=== PATIENT | female | born 1995 | race African-American/Black ===

== ENCOUNTER 2018-03-01 13:09 | Emergency (ER) | payer OTHER ==
[~2018-03-01] VITALS: Ht 152.4 cm; Wt 52.4 kg
[2018-03-01 15:26] VITALS: BP 106/72
== END 2018-03-01 15:46 | disposition home or self-care (01) ==
LOC: ED 15:40
DX: J45.31 Mild persistent asthma with (acute) exacerbation (principal); R07.89 Other chest pain
CPT/HCPCS: 71046; 93005; 99284